=== PATIENT | female | born 1995 | race Caucasian/White ===

== ENCOUNTER → 2024-07-12 13:58 | Outpatient (REF) | payer OTHER, SELFPAY | LOC: RAD 13:58 | PROVIDERS: ATTENDING PHYSICIAN Obstetrics & Gynecology; FAMILY PHYSICIAN Nurse Practitioner Adult Health | DX: O26.851 Spotting complicating pregnancy, first trimester (principal) | CPT/HCPCS: 76801; 76817 ==

== ENCOUNTER 2024-07-12 16:14 | Emergency (ER) | payer OTHER, SELFPAY ==
[2024-07-12 16:17] VITALS: BP 146/94
--- NOTE | 2024-07-12 16:27 | ED.GENMED ---
History of Present Illness
<Milli Calabrese, CLIENT SERVICE COORDINATOR - Last Filed: 07/12/24 23:38>
General
Chief Complaint: Problems
Source: patient
Exam Limitations: none
Time Seen by Provider: 07/12/24 16:24
Nursing documentation reviewed up to this point in time: agreed with
History of Present Illness
History of Present Illness:
28 yo [id number] female saw her PCP for dizziness 2-3 weeks ago, HCG was 5 so repeated it in 3 days and it was positive for . Otherwise her lab workup for dizziness was negative. 'I think I had a miscarriage over the weekend.' She started with
pink spotting 2 nights ago only noted after wiping herself after toileting. Two nights ago noted similar amount of bleeding but a darker color and passed 'two big clots.' Has had minimal bleeding, only with wiping since. Never had to wear a pad.
Intermittent mild cramping, none now.
Received text from CARE ASSOCIATE Dr. Nathan to 'r/o ectopic
Is supposed to be 7 weeks, has been spotting. U/S done this afternoon at does not show any evidence of IUP
Please do labs, blood type and speak to Dr Power who is health occupations teacher for us tonight.
Pt is aware of indications for MTX.'
Past History
<Milli Calabrese, CLIENT SERVICE COORDINATOR - Last Filed: 07/12/24 23:38>
Past History
ED Past Medical History: None
ED Past Surgical History: Other (Sinus surgery)
Social History
Tobacco: Former smoker
Alcohol: Occasional
Personal: Single
Living: with family
Employment: Student
Family History
Family History: Other (Noncontributory)
Review of Systems
<Milli Calabrese, CLIENT SERVICE COORDINATOR - Last Filed: 07/12/24 23:38>
Review of Systems
Allergies reviewed?: Yes
All Other Systems: ROS reviewed and negative except as documented in HPI and ROS
Constitutional: Denies fever
Respiratory: Denies trouble breathing
Cardiac: Denies chest pain
ABD/GI: Denies abdominal pain, nausea or vomiting
: Reports bleeding (small amount with wiping only has not needed to use a pad); Denies dysuria, frequency or difficulty voiding
Musculoskeletal: Reports no symptoms
Skin: Reports no symptoms
Neurological: Denies dizzy, headache, weakness or numbness
Phy Exam
<Milli Calabrese, CLIENT SERVICE COORDINATOR - Last Filed: 07/12/24 23:38>
Physical Exam
Physical Exam:
GENERAL: No acute distress. A&Ox3.
CONSTITUTIONAL: Afebrile.
ENMT: moist mucus membranes, Pharynx nl
RESPIRATORY: Regular respirations, nonlabored, lungs clear.
CARDIOVASCULAR: Regular rate and rhythm, no murmurs, no rubs.
GI: Soft, nontender, normal BS
MUSCULOSKELETAL: Moves with ease. Well perfused.
SKIN: Warm, dry, pink
PSYCH: Normal mood and affect. Well kept, interactive and appropriate
NEUROLOGIC: Awake, alert and oriented. No focal neurological deficits
Course
<Milli Calabrese, CLIENT SERVICE COORDINATOR - Last Filed: 07/12/24 23:38>
Orders/Labs/Results
Orders:
Orders
07/12/24 16:25
Complete Blood Count/With Diff Urgent
HCG, Beta Quantitative [Beta HCG Quantitative] Urgent
Is this a screen?: No
07/12/24 17:23
Comprehensive Metabolic Panel Urgent
07/12/24 18:30
Methotrexate Sodium/Pf [Methotrexate] 49 mg Syringe [Syringe Non-Pump] 0 ml IM BID@1830,1831
Abnormal Lab Results
07/12/24
16:25
Hct 35.8 L %
(37.0-47.0)
MPV 11.7 H fL
(7.4-10.4)
Absolute Neuts (auto) 6.8 H 10^3/uL
(1.4-6.5)
Absolute Monos (auto) 0.7 H 10^3/uL
(0.1-0.6)
07/12/24 16:25
07/12/24 17:23
Vital Signs
Initial and Last Documented VS:
Initial Vital Signs
Temp Pulse Resp BP Pulse Ox
98.0 F 94 16 146/94 98
07/12/24 16:17 07/12/24 16:17 07/12/24 16:17 07/12/24 16:17 07/12/24 16:17
Last Documented Vital Signs
Temp Pulse Resp BP Pulse Ox
98.0 F 77 18 132/79 99
07/12/24 16:17 07/12/24 19:00 07/12/24 19:00 07/12/24 19:00 07/12/24 19:00
Information
Weeks gestation: N/A
Location: N/A
<Wil Rodriguez, DO - Last Filed: 07/12/24 17:14>
Orders/Labs/Results
Orders:
Orders
07/12/24 16:25
Complete Blood Count/With Diff Urgent
HCG, Beta Quantitative [Beta HCG Quantitative] Urgent
Is this a screen?: No
07/12/24 17:23
Comprehensive Metabolic Panel Urgent
07/12/24 18:30
Methotrexate Sodium/Pf [Methotrexate] 49 mg Syringe [Syringe Non-Pump] 0 ml IM BID@1829,1830
Abnormal Lab Results
07/12/24
16:25
Hct 35.8 L %
(37.0-47.0)
MPV 11.7 H fL
(7.4-10.4)
Absolute Neuts (auto) 6.8 H 10^3/uL
(1.4-6.5)
Absolute Monos (auto) 0.7 H 10^3/uL
(0.1-0.6)
07/12/24 16:25
07/12/24 17:23
Vital Signs
Initial and Last Documented VS:
Initial Vital Signs
Temp Pulse Resp BP Pulse Ox
98.0 F 94 16 146/94 98
07/12/24 16:17 07/12/24 16:17 07/12/24 16:17 07/12/24 16:17 07/12/24 16:17
Last Documented Vital Signs
Temp Pulse Resp BP Pulse Ox
98.0 F 77 18 132/79 99
07/12/24 16:17 07/12/24 19:00 07/12/24 19:00 07/12/24 19:00 07/12/24 19:00
<Milli Calabrese CLIENT SERVICE COORDINATOR - Last Filed: 07/12/24 23:38>
MDM/Problems Addressed
Differential Diagnosis Includes:
Ectopic, miscarriage
MDM/Problems Addressed:
28 yo [id number] female saw her PCP for dizziness 2-3 weeks ago, HCG was 5 so repeated it in 3 days and it was positive for . Otherwise her lab workup for dizziness was negative. 'I think I had a miscarriage over the weekend.' She started with
pink spotting 2 nights ago only noted after wiping herself after toileting. Two nights ago noted similar amount of bleeding but a darker color and passed 'two big clots.' Has had minimal bleeding, only with wiping since. Never had to wear a pad.
Intermittent mild cramping, none now.
Received text from CARE ASSOCIATE Dr. Nathan to 'r/o ectopic
Is supposed to be 7 weeks, has been spotting. U/S done this afternoon at does not show any evidence of IUP
Please do labs, blood type and speak to Dr Power who is health occupations teacher for us tonight.
Pt is aware of indications for MTX.'
Pt pleasant, NAD
HCG 2515.[address] Power notified and will be in.
Pt is O pos on previous labs. Cancelled Type an Sera
5:[address] Power in.
Methotrexate given'
Out pt lab slips for repeat HCGs given
<Milli Calabrese, CLIENT SERVICE COORDINATOR - Last Filed: 07/12/24 23:38>
*Critical Care Note
Total Time (30-74mins, 75-104mins- exclusive of procedures): Not Applicable
ED Attending Note
<Milli Calabrese, CLIENT SERVICE COORDINATOR - Last Filed: 07/12/24 23:38>
-
Portions of this chart may have been created with voice recognition software.� Occasional wrong word or��sound alike� substitutions may have occurred due to the inherent limitations of voice recognition software.
<Wil Rodriguez DO - Last Filed: 07/12/24 17:14>
ED Attending Note
Patient seen and examined by attending physician: Yes
I performed the substantive portion of visit, reviewed & personally made and approve the management plan that is documented in note by myself or SRUTHI.: Yes
ED Attending Note:
Seen with CLIENT SERVICE COORDINATOR examined independently agree with assessment and plan lady, beta quant 2500 outpatient ultrasound noted
[employer] has been consulted patient updated
Discharge Plan
Departure
Patient Disposition: Home (Routine Discharge)
Date of Disposition: 07/12/24
Time of Disposition: 18:00
Patient with high blood pressure during this ER visit?: No
Condition: Good
Discharge Problem:
Ectopic
Instructions: Methotrexate, Ectopic - Discharge instructions
Prescriptions:
No Action
Tablet
1 tab PO DAILY
Slow Fe
1 tab PO DAILY
acetaminophen 325 MG tablet
650 mg PO Q4HPRN PRN (Reason: mild pain) 0RF
sennosides-docusate sodium 1 TABLET tablet
1 tab PO DAILYPRN PRN (Reason: constipation) 0RF
ibuprofen 600 MG tablet
400 mg PO Q4HPRN PRN (Reason: moderate pain/cramps) 0RF
Referrals:
Mera Nelson CRNP [Family Provider] -
Joellen Power MD [Active] - Follow up in 2-3 days
Activity Restrictions/Additional Instructions:
As discussed with Dr. Power, return for lab work on and Friday as noted on the la slips.
POSTTREATMENT INSTRUCTIONS AND COUNSELING
�Instructions�� Patients should adhere to the following instructions during MTX treatment [11https://www.[employer]/contents/aiaycbf-wdimffedh-yxasjacsvsno-therapy/abstract/11]:
�Avoid vaginal intercourse and new conception until human chorionic gonadotropin (hCG) is undetectable. The median time to hCG resolution is 22 days [25https://www.[employer]/contents/pdlyilo-byrbkxhqb-ibqxpjejxkxw-therapy/abstract/25].
�Avoid pelvic examinations during surveillance of MTX therapy due to theoretical risk of tubal rupture.
�Avoid sun exposure to limit the risk of MTX dermatitis.
�Avoid vitamins containing�folic acidhttps://www.[employer]/contents/whtrt-nrtt-vwbp-information?search=methotrexate+for+ectopic+&sytkdIbz=8108&source=see_link.
�It is common advice to avoid nonsteroidal anti-inflammatory drugs (NSAIDs), as the interaction with MTX may decrease renal excretion of MTX and increase the risk of toxicity. However, for rheumatologic disease, low-dose MTX is sometimes given
concurrently with NSAIDs along with close monitoring; the dose given for ectopic is considered an intermediate dose. (See�'Use of methotrexate in the treatment of rheumatoid arthritis', section on
'Pharmacology'https://www.[employer]/contents/cjo-zo-dulwdmmcsrfr-fq-lql-ylrnmruvt-iq-elxhygbwlm-dnqxnbzrr?sectionName=PHARMACOLOGY&search=methotrexate+for+ectopic+&rarxoZfe=1746&anchor=H2&source=see_link#H2�and�'Therapeutic use and
toxicity of high-dose methotrexate', section on 'Potential drug-drug
interactions'https://www.[employer]/contents/kxcyqtsudgf-fed-waz-pdqrxzxh-jx-ebra-dose-methotrexate?sectionName=Potential+drug-drug+interactions&search=methotrexate+for+ectopic+&tqohaLpw=8042&yqligl=[id number]&source=see_link#G7397195.)
�Counseling about pain after treatment�� Mild to moderate abdominal pain of short duration (one to two days) at six to seven days after receiving the MTX is common. The pain may be due to tubal or tubal distention from hematoma formation
and can usually be controlled with�acetaminophenhttps://www.[employer]/contents/gbgeuiehxnvky-ijyfkaqunrt-blch-information?search=methotrexate+for+ectopic+&ennqmRix=6476&source=see_link.
By contrast, severe abdominal pain is concerning for tubal rupture. Such patients should be further evaluated with transvaginal ultrasonography; findings suggestive of hemoperitoneum raise clinical suspicion of tubal rupture. In one study, three
parameters predicted hemoperitoneum >=00 mL in patients with ectopic : moderate to severe pelvic pain, fluid above the uterine fundus or around the ovary, and hemoglobin concentration <10 g/dL
[26https://www.[employer]/contents/dlpakag-liokputrt-orcsxxhyfrar-therapy/abstract/26]. A patient with none of these three criteria had a probability of 5.3 percent of hemoperitoneum >=00 mL. When two or more criteria were present, the probability
for hemoperitoneum >=00 mL reached 92.6 percent.
If hemoperitoneum is not found on ultrasound, patients with severe pain should be closely observed for hemodynamic changes that may accompany tubal rupture. Falling hCG levels do�not�preclude the possibility of tubal rupture. If tubal rupture is
suspected, immediate surgery is required. (See�'Tubal ectopic : Surgical treatment'https://www.[employer]/contents/kjykw-tirqmcx-pojpdxowk-surgical-treatment?search=methotrexate+for+ectopic+&sunlkRqo=9996&source=see_link.)
Severe pain alone in a hemodynamically stable patient is not an indication for surgery. As an example, in a review including 56 patients with ectopic and managed with ectopic , presenting with abdominal pain severe enough to be
evaluated in the clinic or emergency department or requiring hospitalization, only eight patients subsequently required surgery [27https://www.[employer]/contents/drzejwi-xlzgrxorx-ocdfphmokmxx-therapy/abstract/27].
Interventions
Interventions:
*Risk Screen - Suicide Last Done: 07/12/24 16:16
*General Assessment Last Done: 07/12/24 17:24
*Neglect/Abuse Screening Last Done: 07/12/24 16:16
ED- Fall Risk Assessment Last Done: 07/12/24 19:00
*ED COVID-19 Vaccine History Last Done: 07/12/24 17:24
*Nursing Disposition Last Done: 07/12/24 19:00
ED-Female Genitourinary Assessment Last Done: 07/12/24 17:24
Discharge Date and Time
Discharge Date/Time: 07/12/24 19:01
Print Language: VIETNAMESE
[2024-07-12 16:31] LABS: % Basophils 0.7 % (0-2); % Eosinophils 3.4 % (0-6); % Immature Granulocytes 0.2 % (0-0.5); % Lymphocytes 20.9 % (20.5-51.1); % Monocytes 7.2 % (1.7-9.3); % Neutrophils 67.6 % (42.2-75.2); Absolute Basophils 0.1 10^3/uL (0-0.2); Absolute Eosinophils 0.3 10^3/uL (0-0.7); Absolute Lymphocytes 2.1 10^3/uL (1.2-3.4); Absolute Monocytes 0.7 10^3/uL (0.1-0.6); Absolute Neutrophils 6.8 10^3/uL (1.4-6.5); Hematocrit 35.8 % (37.0-47.0); Hemoglobin 12.3 g/dL (12.0-16.0); Mean Corp Hgb Conc. 34.4 g/dL (33.0-37.0); Mean Corpuscular Hgb 28.1 pg (27.0-31.0); Mean Corpuscular Volume 81.7 fL (81.0-99.0); Mean Platelet Volume 11.7 fL (7.4-10.4); Nucleated Red Blood Cells % 0 %; Platelet Count 255 10^3/uL (130-400); Red Blood Cell Count 4.38 10^6/uL (4.20-5.40); Red Cell Dist. Width 13.3 % (11.5-14.5); White Blood Cell Count 10.1 10^3/uL (4.8-10.8)
[2024-07-12 17:48] VITALS: BMI 32.8
[2024-07-12 17:50] LABS: ALT (SGPT) 19 U/L (0-35); AST (SGOT) 24 U/L (14-36); Albumin 4.6 g/dl (3.5-5.0); Alkaline Phosphatase 73 U/L (38-126); Blood Urea Nitrogen 12 mg/dl (7-17); Calcium 9.3 mg/dl (8.4-10.2); Carbon Dioxide 24 mmol/L (22-30); Chloride 105 mmol/L (98-107); Estimated Creatinine Clearance 117 ml/min; Glucose 95 mg/dl (70-99); Potassium 4.3 mmol/L (3.5-5.1); Sodium 141 mmol/L (135-145); Total Bilirubin 0.3 mg/dl (0.2-1.3); Total Protein 7.5 g/dl (6.3-8.2); eGFR > 60.00
[2024-07-12] MEDS: METHOTREXATE 1.96 MG IM ×2 (18:55→18:56)
[2024-07-12 19:00] VITALS: BP 132/79
== END 2024-07-12 19:01 | disposition home or self-care (01) ==
LOC: EMR 16:14
PROVIDERS: Registered Nurse; EMERGENCY PHYSICIAN Emergency Medicine; FAMILY PHYSICIAN Nurse Practitioner Adult Health; OTHER PHYSICIAN Obstetrics & Gynecology
DX: O00.90 Unspecified ectopic pregnancy without intrauterine pregnancy (principal)
CPT/HCPCS: 96372; 99284; 80053; 84702; 85025; J9260

== ENCOUNTER → 2024-07-15 14:56 | Outpatient (REF) | payer OTHER, SELFPAY ==
[2024-07-15 16:50] LABS: Beta HCG Quantitative 496.58 mIU/ml
== END ==
LOC: REG 14:56
PROVIDERS: ATTENDING PHYSICIAN Obstetrics & Gynecology; FAMILY PHYSICIAN Nurse Practitioner Adult Health
DX: O00.90 Unspecified ectopic pregnancy without intrauterine pregnancy (principal)
CPT/HCPCS: 36415; 84702

== ENCOUNTER → 2024-07-18 13:48 | Outpatient (REF) | payer OTHER, SELFPAY ==
[2024-07-18 14:44] LABS: Beta HCG Quantitative 127.76 mIU/ml
== END ==
LOC: OLAB 13:48
PROVIDERS: ATTENDING PHYSICIAN Obstetrics & Gynecology; FAMILY PHYSICIAN Nurse Practitioner Adult Health
DX: O00.90 Unspecified ectopic pregnancy without intrauterine pregnancy (principal)
CPT/HCPCS: 84702

== ENCOUNTER 2024-10-18 14:27 | Emergency (ER) | payer OTHER, SELFPAY ==
[2024-10-18 14:37] VITALS: BP 136/81
[2024-10-18 15:00] LABS: % Basophils 0.7 % (0-2); % Eosinophils 6.1 % (0-6); % Immature Granulocytes 0.2 % (0-0.5); % Lymphocytes 24.2 % (20.5-51.1); % Monocytes 6.1 % (1.7-9.3); % Neutrophils 62.7 % (42.2-75.2); Absolute Basophils 0.1 10^3/uL (0-0.2); Absolute Eosinophils 0.5 10^3/uL (0-0.7); Absolute Monocytes 0.5 10^3/uL (0.1-0.6); Absolute Neutrophils 5.2 10^3/uL (1.4-6.5); Hematocrit 38.1 % (37.0-47.0); Hemoglobin 12.7 g/dL (12.0-16.0); Mean Corp Hgb Conc. 33.3 g/dL (33.0-37.0); Mean Corpuscular Hgb 28.8 pg (27.0-31.0); Mean Corpuscular Volume 86.4 fL (81.0-99.0); Nucleated Red Blood Cells % 0 %; Platelet Count 214 10^3/uL (130-400); Red Blood Cell Count 4.41 10^6/uL (4.20-5.40); Red Cell Dist. Width 13.2 % (11.5-14.5); White Blood Cell Count 8.3 10^3/uL (4.8-10.8)
[2024-10-18 15:12] LABS: HCG, Serum Qualitative Screen Negative
[2024-10-18 15:21] LABS: ALT (SGPT) 17 U/L (0-35); AST (SGOT) 21 U/L (14-36); Albumin 4.7 g/dl (3.5-5.0); Alkaline Phosphatase 73 U/L (38-126); Blood Urea Nitrogen 13 mg/dl (7-17); Calcium 9.3 mg/dl (8.4-10.2); Carbon Dioxide 23 mmol/L (22-30); Chloride 104 mmol/L (98-107); Glucose 94 mg/dl (70-99); Potassium 4.2 mmol/L (3.5-5.1); Sodium 138 mmol/L (135-145); Total Bilirubin 0.2 mg/dl (0.2-1.3); Total Protein 7.8 g/dl (6.3-8.2); eGFR > 60.00
[2024-10-18 15:46] LABS: TSH Reflex To Free T4 1.58 uIU/ml (0.47-4.68)
[2024-10-18 18:00] VITALS: BP 131/97
--- NOTE | 2024-10-18 18:33 | ED.GENMED ---
History of Present Illness
General
Chief Complaint: Heart Rate Problem
Source: patient
Time Seen by Provider: 10/18/24 17:54
History of Present Illness
History of Present Illness:
29-year-old female presents to the emergency room complaining of palpitations. She feels like her heart is beating strongly. Symptoms have been present for the past week or so. No shortness of breath. No real chest pain. Patient admits she has
been under significant stress recently. She was treated for an ectopic in June. She has other additional stresses she did not get into. She has been prescribed Zoloft which she did not feel was helping. She was recently switched
to a different antidepressant just a couple weeks ago.
Past History
Past History
ED Past Medical History: None
ED Past Surgical History: Other (Sinus surgery)
Social History
Tobacco: Former smoker
Alcohol: Occasional
Personal: Single
Living: with family
Employment: Student
Family History
Family History: Other (Noncontributory)
Phy Exam
Physical Exam
Physical Exam:
General: Awake, Alert, Oriented X3. No acute distress.
Vitals: unremarkable
Head: Atraumatic
Eyes: Pupils equal, EOMI
Throat: Airway intact, no exudates
Neck: Trachea midline
Lungs: Clear and equal b/l
Heart: Regular rate, no murmurs
Abd: Soft, Nontender, No pulsatile mass
Neuro: Nonfocal
Skin: Warm, dry, no rash
Extremities: pulses equal b/l, no edema
Course
Orders/Labs/Results
Orders:
Orders
10/18/24 14:28
Electrocardiogram (*1) Urgent
Reason for Study: Chest Pain
EKG- Treatment ONCE
10/18/24 14:41
Test Result ONCE
10/18/24 14:46
Complete Blood Count/With Diff Urgent
Comprehensive Metabolic Panel Urgent
HCG, Serum Qualitative Screen Urgent
TSH Reflex To Free T4 Urgent
Abnormal Lab Results
10/18/24
14:46
MPV 12.0 H fL
(7.4-10.4)
Eosinophils % 6.1 H %
(0-6)
10/18/24 14:46
10/18/24 14:46
Vital Signs
Initial and Last Documented VS:
Initial Vital Signs
Temp Pulse Resp BP Pulse Ox
98.4 F 94 18 136/81 100
10/18/24 14:37 10/18/24 14:37 10/18/24 14:37 10/18/24 14:37 10/18/24 14:37
Last Documented Vital Signs
Temp Pulse Resp BP Pulse Ox
98.4 F 74 18 131/97 100
10/18/24 14:37 10/18/24 18:00 10/18/24 18:00 10/18/24 18:00 10/18/24 18:00
MDM/Problems Addressed
Differential Diagnosis Includes:
PVCs, PACs, SVT, anxiety
MDM/Problems Addressed:
Patient presents with sensation that her heart is beating more strongly a more rapidly than normal. On the cardiac technician patient's been in normal sinus rhythm. Workup here shows no clinically significant abnormalities. Recommend patient
follow-up with her primary care doctor for potential Holter monitor. Patient also expresses how anxious she is and how much stress she has been under. Recommend patient also follow-up with [facility]
*Pulse Oximetry
Patient hypoxic: no
*EKG
Interpreted by ED Provider?: Yes
Interpretation: normal
Comparison EKG: no changes
Rate: normal
Rhythm: sinus
[place]: normal axis
Interval: normal interval
QRS Pattern: normal QRS
Ischemia: no ischemia
*Cone Operator Interpretation
Rate: normal
Interpretation: normal
Rhythm: sinus
*Critical Care Note
Total Time (30-74mins, 75-104mins- exclusive of procedures): Not Applicable
ED Attending Note
-
Portions of this chart may have been created with voice recognition software.� Occasional wrong word or��sound alike� substitutions may have occurred due to the inherent limitations of voice recognition software.
Discharge Plan
Departure
Patient Disposition: Home (Routine Discharge)
Date of Disposition: 10/18/24
Time of Disposition: 18:37
Patient with high blood pressure during this ER visit?: No
Condition: Good
Discharge Problem:
Palpitations
Instructions: Palpitations (DC)
Prescriptions:
No Action
Tablet
1 tab PO DAILY
Slow Fe
1 tab PO DAILY
acetaminophen 325 MG tablet
650 mg PO Q4HPRN PRN (Reason: mild pain) 0RF
sennosides-docusate sodium 1 TABLET tablet
1 tab PO DAILYPRN PRN (Reason: constipation) 0RF
ibuprofen 600 MG tablet
400 mg PO Q4HPRN PRN (Reason: moderate pain/cramps) 0RF
Referrals:
Benny Lopez, DO [Family Provider] -
Interventions
Interventions:
*Risk Screen - Suicide Last Done: 10/18/24 14:37
*General Assessment Last Done: 10/18/24 14:37
*Neglect/Abuse Screening Last Done: 10/18/24 14:37
*ED COVID-19 Vaccine History Last Done: 10/18/24 17:53
*Nursing Disposition Last Done: 10/18/24 19:15
ED- Cardiac Assessment Last Done: 10/18/24 17:53
ED- Pulmonary Assessment Last Done: 10/18/24 17:53
Discharge Date and Time
Discharge Date/Time: 10/18/24 19:16
Print Language: KHMER
== END 2024-10-18 19:16 | disposition home or self-care (01) ==
LOC: EMR 14:27
PROVIDERS: Student in an Organized Health Care Education/Training Program; EMERGENCY PHYSICIAN Emergency Medicine; FAMILY PHYSICIAN Family Medicine
DX: R00.2 Palpitations (principal); Z87.891 Personal history of nicotine dependence
CPT/HCPCS: 99284; 80053; 84443; 84703; 85025; 93005

== ENCOUNTER → 2025-05-31 09:56 | Outpatient (REF) | payer OTHER, SELFPAY | LOC: PNTC 09:56 | PROVIDERS: ATTENDING PHYSICIAN Obstetrics & Gynecology | DX: Z36.0 Encounter for antenatal screening for chromosomal anomalies (principal); Z36.82 Encounter for antenatal screening for nuchal translucency | CPT/HCPCS: 76801; 76813 ==

== ENCOUNTER → 2025-06-30 09:34 | Outpatient (REF) | payer OTHER, SELFPAY | LOC: PNTC 09:34 | PROVIDERS: ATTENDING PHYSICIAN Obstetrics & Gynecology | DX: O99.210 Obesity complicating pregnancy, unspecified trimester (principal); O99.320 Drug use complicating pregnancy, unspecified trimester | CPT/HCPCS: 76805 ==

== ENCOUNTER → 2025-07-28 13:34 | Outpatient (REF) | payer OTHER, SELFPAY | LOC: PNTC 13:34 | PROVIDERS: ATTENDING PHYSICIAN Student in an Organized Health Care Education/Training Program | DX: O99.212 Obesity complicating pregnancy, second trimester (principal); O99.322 Drug use complicating pregnancy, second trimester; Z36.3 Encounter for antenatal screening for malformations; Z36.86 Encounter for antenatal screening for cervical length | CPT/HCPCS: 76811; 76817 ==

== ENCOUNTER → 2025-09-06 13:50 | Outpatient (REF) | payer OTHER, SELFPAY | LOC: PNTC 13:50 | PROVIDERS: ATTENDING PHYSICIAN Obstetrics & Gynecology | DX: O99.212 Obesity complicating pregnancy, second trimester (principal) | CPT/HCPCS: 76816 ==

== ENCOUNTER → 2025-10-17 11:17 | Outpatient (REF) | payer OTHER, SELFPAY | LOC: PNTC 11:17 | PROVIDERS: ATTENDING PHYSICIAN Obstetrics & Gynecology | DX: O99.213 Obesity complicating pregnancy, third trimester (principal); O35.0 Maternal care for (suspected) central nervous system malformation in fetus | CPT/HCPCS: 76816 ==